=== PATIENT | male | born 1950 | race Asian ===

== ENCOUNTER 2017-02-28 14:43 | Emergency (ER) | payer MEDICARE, OTHER ==
[~2017-02-28] VITALS: Ht 157.5 cm; Wt 79.9 kg
[2017-02-28 14:49] VITALS: Ht 157.5 cm; Wt 79.9 kg
[2017-02-28] MEDS ORDERED: TERA10CA42 PO (17:44)
[2017-02-28] MEDS ORDERED: LOSA50TA6 PO (17:44)
[2017-02-28] MEDS ORDERED: ALLO100T PO (17:44)
[2017-02-28] MEDS ORDERED: ASPI-664 PO (17:45)
[2017-02-28] MEDS ORDERED: GEMF600T PO (17:45)
[2017-02-28] MEDS ORDERED: IBUPROFEN 800 MG TAB PO ONE (18:00)
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
[2017-02-28] MEDS ORDERED: METH500T PO (19:21)
[2017-02-28] MEDS ORDERED: NAPR-260 PO (19:21)
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
[2017-02-28 19:44] VITALS: BP 135/79; PULSE 63; RESP 16
== END 2017-02-28 19:47 | disposition home or self-care (01) ==
LOC: E/R 14:43
DX: S29.012A Strain of muscle and tendon of back wall of thorax, initial encounter (principal); I10 Essential (primary) hypertension; V43.52XA Car driver injured in collision with other type car in traffic accident, initial encounter
CPT/HCPCS: 71020; 93005

== ENCOUNTER 2017-10-05 23:57 | Emergency (ER) | payer OTHER ==
[~2017-10-05] VITALS: Ht 172.7 cm; Wt 91.0 kg
[~2017-10-05 23:57] MED LIST: ALLO100T PO; ASPI-664 PO; GEMF600T PO; LOSA50TA6 PO; METH500T PO; NAPR-260 PO; TERA10CA42 PO
[2017-10-05 23:58] VITALS: Ht 172.7 cm; Wt 91.0 kg
[2017-10-06 00:45] LABS: BASOPHIL # 0.1 10^3/ul (0.0-0.1); BASOPHILS % 1.8 % (0.0-2.0); EOSINOPHILS # 1.3 10^3/ul (0.0-0.5); EOSINOPHILS % 16.8 % (0.0-7.0); HEMATOCRIT 35.9 % (42.0-52.0); HEMOGLOBIN 12.2 g/dl (14.0-18.0); LYMPHOCYTES # 2.8 10^3/ul (0.8-2.9); LYMPHOCYTES % 34.9 % (15.0-51.0); MEAN CORPUSCULAR HEMOGLOBIN 30.3 pg (29.0-33.0); MEAN CORPUSCULAR VOLUME 89.3 fl (82.0-101.0); MEAN PLATELET VOLUME 10.3 fl (7.4-10.4); MONOCYTE # 0.9 10^3/ul (0.3-0.9); MONOCYTES % 10.6 % (0.0-11.0); NEUTROPHIL # 2.8 10^3/ul (1.6-7.5); PLATELET COUNT 240 10^3/UL (140-415); RED BLOOD COUNT 4.02 10^6/ul (4.70-6.10)
--- NOTE | 2017-10-06 01:07 | RADRPT ---
PROCEDURE: CHEST - 1 VIEW CLINICAL INDICATION: 59-year-old male with chest pain. TECHNIQUE: A single frontal AP semi-erect view of the chest was performed. The images were review ed on a PACS workstation. COMPARISON: CR CHEST 02/28/2017 FINDINGS: The cardiomediastinal silhouette is mildly enlarged. The thoracic aortic arch is calcified. Chronic lung changes are present. There is no evidence for an infiltrate. There is no evidence for congest jair heart failure. There is no evidence for pneumothorax. The osseous structures are intact. IMPRESSION: 1. Cardiomegaly. 2. Calcified thoracic aortic arch. 3. Chronic lung changes. .Rajinder Hodge MD, Date Time Electronically viewed and signed by .Rajinder Hodge MD, on 10/06/2017 01:07 .Jeremias
[2017-10-06 01:09] LABS: ALANINE AMINOTRANSFERASE 38 IU/L (13-69); ALBUMIN 4.2 g/dl (3.3-4.9); ALKALINE PHOSPHATASE 84 IU/L (42-121); ANION GAP 15 (8-16); ASPARTATE AMINO TRANSFERASE 22 IU/L (15-46); BILIRUBIN,INDIRECT 0.2 mg/dl (0-1.1); BILIRUBIN,TOTAL 0.2 mg/dl (0.2-1.3); BLOOD UREA NITROGEN 16 mg/dl (7-20); CALCIUM 9.6 mg/dl (8.4-10.2); CARBON DIOXIDE 27 mmol/L (21-31); CHLORIDE 105 mmol/L (97-110); CREATININE 1.07 mg/dl (0.61-1.24); GLUCOSE 90 mg/dl (70-220); POTASSIUM 3.9 mmol/L (3.5-5.1); SODIUM 143 mmol/L (135-144)
[2017-10-06 01:20] LABS: B-TYPE NATRIURETIC PEPTIDE 35 PG/ML (0-125)
[2017-10-06 01:21] LABS: TROPONIN-I < 0.012 ng/ml (0.00-0.12)
[2017-10-06 02:33] VITALS: BP 133/81; PULSE 64; RESP 18; TEMP 96.7
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
== END 2017-10-06 02:36 | disposition home or self-care (01) ==
LOC: E/R 23:57
DX: R07.89 Other chest pain (principal); I10 Essential (primary) hypertension; R06.02 Shortness of breath
CPT/HCPCS: 36415; 71010; 80053; 83880; 84484; 85025; 93005

== ENCOUNTER 2018-04-03 15:39 | Day surgery (SDC) | END 2018-04-03 18:45 | disposition home or self-care (01) ==